=== PATIENT | female | born 1965 | race Caucasian/White ===

== ENCOUNTER 2020-06-06 07:18 | Outpatient (CLI) | payer OTHER ==
--- NOTE | 2020-06-06 11:55 | Ultrasound Report ---
PROCEDURE: Head or Neck Soft Tissue INDICATIONS: NONTOXIC GOITER TECHNIQUE: Real-time scanning was performed of the thyroid gland, with image documentation. COMPARISON: None FINDINGS: Right: Thyroid lobe measures 4.5 x 1.7 x 1.6 cm, and is homogeneous in echotexture. Left: Thyroid lobe measures 4.5 x 1.7 x 1.4 cm, and is homogenous in echotexture. Isthmus: 3 mm thick. Nodule number: 1 Location: Right superior thyroid Size: 0.6 x 0.3 x 0.4 cm. Composition: Cystic Echogenicity: Anechoic Shape: wider than tall. Margins: Smooth Echogenic foci: None Total points: 0 ACR TI-RADS category: 1 Nodule number: 2 Location: Left superior thyroid Size: 1.2 x 0.6 x 1.1 cm. Composition: Solid Echogenicity: Hypoechoic Shape: wider than tall. Margins: Smooth Echogenic foci: None Total points: 4 ACR TI-RADS category: 4 IMPRESSION: Bilateral thyroid nodules are seen. By published criteria, annual follow-up is recommended for the left thyroid nodule. ACR TI-RADS definitions and recommendations: TI-RADS 1 (benign): 0 points. FNA not needed. TI-RADS 2 (not suspicious): 2 points. FNA not needed. TI-RADS 3 (mildly suspicious): 3 points. ? FNA if 2.5 cm or larger, follow up if 1.5 cm or larger (at 1, 3, and 5 years). TI-RADS 4 (moderately suspicious): 4-6 points. ? FNA if 1.5 cm or larger, follow up if 1 cm or larger (at 1, 2, 3, and 5 years). TI-RADS 5 (highly suspicious): 7 points or more. ? FNA if 1 cm or larger, follow up if 0.5 cm or larger (every year for 5 years). Reviewed by: Gal Sosa MD on 06/06/2020 10:54 AM [facility] Approved by: Gal Sosa MD on 06/06/2020 10:54 AM [facility] Station ID: [id number]
== END 2020-06-06 07:19 | disposition home or self-care (01) ==
LOC: DI 07:18
PROVIDERS: ATTEND Physician Assistant
DX: E04.2 Nontoxic multinodular goiter (principal)

== ENCOUNTER 2020-07-01 15:04 | Outpatient (CLI) | payer OTHER ==
--- NOTE | 2020-07-09 08:26 | Mammography Report ---
BILATERAL DIGITAL SCREENING MAMMOGRAM 3D/2D WITH AUGMENTATION: 07/01/2020 CLINICAL: Routine screening. Routine screening. No prior exams were available for comparison. There are scattered fibroglandular elements in both br easts. Bilateral subpectoral silicone implants are intact. No significant masses, calcifications, or other findings are seen in either breast. IMPRESSION: BENIGN There is no mammographic evidence of malignancy. Return to annual mammogram screening schedule is rec ommended. This exam was interpreted at Station ID: [id number]. NOTE: For mammograms, a report in lay terms will be sent to the patient. Approximately 15% of breast malignancies will not be visualized mammographically. In the management of a palpable breast mass, a negative mammogram must not discourage biopsy of a clinically suspicious lesion. Electronically Signed By: Smiley aldana/aleisha:07/08/2020 16:33:33 ACR BI-RADS Category 2: Benign Finding(s) 3342F PARENCHYMAL PATTERN: (A) - The breast(s) demonstrate(s) scattered fibroglandular densities. BI-RADS CATEGORY: (2) - 2 RECOMMENDATION: (ANNUAL) - Recommend routine annual screening mammography. [id number] return to screening LATERALITY: (B)
== END 2020-07-01 15:05 | disposition home or self-care (01) ==
LOC: DI.S 15:04
PROVIDERS: ATTEND Physician Assistant
DX: Z12.31 Encounter for screening mammogram for malignant neoplasm of breast (principal); Z98.82 Breast implant status

== ENCOUNTER 2021-06-17 13:55 | Outpatient (CLI) | payer OTHER ==
--- NOTE | 2021-06-17 16:58 | Ultrasound Report ---
PROCEDURE: Head or Neck Soft Tissue INDICATIONS: MULTINODULAR GOITER TECHNIQUE: Real-time scanning was performed of the thyroid gland, with image documentation. COMPARISON: 06/06/2020 FINDINGS: Right: Thyroid lobe measures 4.3 x 1.5 x 1.8 cm, and is homogeneous in echotexture. Left: Thyroid lobe measures 4.7 x 1.5 x 1.7 cm, and is homogenous in echotexture. Isthmus: 2.4 mm thick. Nodule number: One Location: Right mid-lateral Size: 0.6 x 0.3 x 0.5 cm. Composition: Cyst Echogenicity: Anechoic Shape: wider than tall. Margins: Smooth Echogenic foci: , Tail artifact Total points: 0 ACR TI-RADS category: 1; benign Nodule number: Two Location: Left mid superior Size: 1.2 x 0.6 x 1.3 cm. Composition: Central Echogenicity: Hypoechoic Shape: wider than tall. Margins: Smooth Echogenic foci: Punctate Total points: 4 ACR TI-RADS category: 4; moderately suspicious IMPRESSION: Bilateral thyroid nodule stable compared to 06/06/2020. Recommend continued surveillance of nodule 2 in one year, 2 years and 4 years based on criteria outlined below. ACR TI-RADS definitions and recommendations: TI-RADS 1 (benign): 0 points. FNA not needed. TI-RADS 2 (not suspicious): 2 points. FNA not needed. TI-RADS 3 (mildly suspicious): 3 points. "FNA if 2.5 cm or larger, follow up if 1.5 cm or larger (at 1, 3, and 5 years). TI-RADS 4 (moderately suspicious): 4-6 points. "FNA if 1.5 cm or larger, follow up if 1 cm or larger (at 1, 2, 3, and 5 years). TI-RADS 5 (highly suspicious): 7 points or more. "FNA if 1 cm or larger, follow up if 0.5 cm or larger (every year for 5 years). Reviewed by: Denise Centeno MD, PhD on 06/17/2021 4:57 PM PST Approved by: Denise Centeno MD, PhD on 06/17/2021 4:57 PM PST Station ID: [id number]
== END 2021-06-17 13:56 | disposition home or self-care (01) ==
LOC: DI 13:55
PROVIDERS: ATTEND Physician Assistant
DX: E04.2 Nontoxic multinodular goiter (principal)

== ENCOUNTER 2021-10-06 13:06 | Outpatient (CLI) | payer OTHER ==
[2021-10-06 20:14] LABS: BASOPHILS % (AUTO) 0.4 %; EOSINOPHILS # (AUTO) 0.1 10^3/uL (0.0-0.7); EOSINOPHILS % (AUTO) 1.2 %; HCT - HEMATOCRIT 42.4 % (37.0-47.0); HGB - HEMOGLOBIN 13.9 g/dL (12.0-16.0); LYMPHOCYTES % (AUTO) 32.4 %; MEAN CORPUSCULAR HEMOGLOBIN 31.7 pg (27.0-31.0); MEAN CORPUSCULAR HGB CONC 32.8 g/dL (32.0-36.0); MEAN CORPUSCULAR VOLUME 96.6 fL (81.0-99.0); MEAN PLATELET VOLUME 9.9 fL (7.9-10.8); MONOCYTES # (AUTO) 0.6 10^3/uL (0.0-1.0); MONOCYTES % (AUTO) 6.7 %; NEUTROPHILS # (AUTO) 5.4 10^3/uL (1.5-6.6); NEUTROPHILS % (AUTO) 59.1 %; PLT - PLATELET COUNT 321 10^3/uL (130-450); RED BLOOD COUNT 4.39 10^6/uL (4.20-5.40); RED CELL DISTRIBUTION WIDTH 12.8 % (12.0-15.0); WHITE BLOOD COUNT 9.1 x10^3/uL (4.8-10.8)
[2021-10-06 20:28] LABS: % IRON SATURATION 22 % (20-50); ALBUMIN 3.9 g/dL (3.2-5.5); ALBUMIN/GLOBULIN RATIO 1.2 (1.0-2.2); ALKALINE PHOSPHATASE 68 IU/L (42-121); ALT ALANINE AMINOTRANSFERASE 22 IU/L (10-60); AST ASPARTATE AMINOTRANSFERASE 21 IU/L (10-42); BILIRUBIN,TOTAL < 0.2 mg/dL (0.2-1.0); BUN - BLOOD UREA NITROGEN 13 mg/dL (6-20); CALCIUM 9.5 mg/dL (8.5-10.3); CARBON DIOXIDE - CO2 29 mmol/L (21-32); CHLORIDE 103 mmol/L (101-111); CHOLESTEROL 270 mg/dL; CREATININE 0.7 mg/dL (0.4-1.0); GFR - MDRD 86 (>89); GLUCOSE 123 mg/dL (70-100); HDL CHOLESTEROL 67 mg/dL; IRON 74 ug/dL (28-170); LDL CHOLESTEROL,CALCULATED 159 mg/dL; LDL/HDL RATIO 2.4 (<4.4); POTASSIUM 4.2 mmol/L (3.5-5.0); SODIUM 141 mmol/L (135-145); TOTAL IRON BINDING CAPACITY 342 ug/dL (250-450); TOTAL PROTEIN 7.1 g/dL (6.7-8.2); TRANSFERRIN 244 mg/dL (192-382); TRIGLYCERIDES 220 mg/dL; VLDL CHOLESTEROL 44 mg/dL
[2021-10-06 20:36] LABS: THYROID STIMULATING HORMONE 1.4 uIU/mL (0.34-5.60)
[2021-10-06 20:38] LABS: FREE T3 3.28 pg/mL (2.5-3.9)
[2021-10-06 20:40] LABS: FREE T4 (FREE THYROXINE) 0.71 ng/dL (0.58-1.64)
[2021-10-06 20:44] LABS: FERRITIN 53.7 ng/mL (11.0-306.8)
[2021-10-06 20:50] LABS: CRP - C-REACTIVE PROTEIN < 1.0 mg/dL (0-1.0)
== END 2021-10-06 13:07 | disposition home or self-care (01) ==
LOC: LAB.S 13:06
PROVIDERS: ATTEND Nurse Practitioner Family
DX: E78.5 Hyperlipidemia, unspecified (principal); R53.83 Other fatigue; L65.9 Nonscarring hair loss, unspecified; E04.1 Nontoxic single thyroid nodule
CPT/HCPCS: 36415; 80053; 80061; 82728; 83540; 83721; 84439; 84443; 84466; 84481; 85025; 85651; 86140

== ENCOUNTER 2021-10-19 12:57 | Outpatient (CLI) | payer OTHER ==
--- NOTE | 2021-10-19 16:25 | DEXA Report ---
PROCEDURE: Dexa Spine and/or Hip INDICATIONS: POST MENOPAUSAL TECHNIQUE: Dual energy x-ray absorptiometry (DXA) was performed on a Segm[employer] System. Regions measur ed are the AP Spine, femoral neck, and if needed forearm. COMPARISON: None. FINDINGS: Lumbar Spine: Bone Mineral Density 1.077 g/cm/cm,T score -0.7, normal. Left Hip: Bone Mineral Density 0.871 g/cm/cm,T score -1.1, osteopenia. Left Femoral Neck: Bone Mineral Density 0.867 g/cm/cm, T score -1.2, osteopenia. (T score greater or equal to -1.0: NORMAL) (T score from -1.1 to -2.4: OSTEOPENIA) (T score less than or equal to -2.5 to: OSTEOPOROSIS) Impression: Decreased bone mineral density in the osteopenia range at the left hip and left femoral neck. Patients with diagnosis of osteoporosis or osteopenia should have regular bone mineral density assess ment. For those eligible for Medicare, routine testing is allowed once every 2 years. Testing frequ ency can be increased for patients who have rapidly progressing disease or for those who are receivin g medical therapy to restore bone mass. Reviewed by: Sherwin Jha MD on 10/19/2021 4:24 PM PDT Approved by: Sherwin Jha MD on 10/19/2021 4:24 PM PDT Station ID: [id number]
== END 2021-10-19 12:58 | disposition home or self-care (01) ==
LOC: DI 12:57
PROVIDERS: ATTEND Nurse Practitioner Family
DX: M85.89 Other specified disorders of bone density and structure, multiple sites (principal); Z78.0 Asymptomatic menopausal state

== ENCOUNTER 2021-10-26 09:42 | Outpatient (CLI) | payer OTHER ==
--- NOTE | 2021-10-27 16:21 | Mammography Report ---
BILATERAL DIGITAL SCREENING MAMMOGRAM 3D/2D WITH AUGMENTATION: 10/26/2021 CLINICAL: Routine screening. Comparison is made to exam dated: 07/01/2020 mammogram - [facility]. There are sca ttered fibroglandular elements in both breasts. Bilateral breast implants are stable and intact. No significant masses, calcifications, or other findings are seen in either breast. There has been no significant interval change. IMPRESSION: NEGATIVE There is no mammographic evidence of malignancy. A 1 year screening mammogram is recommended. Based on the Tyrer Cuzick model (a risk assessment model) the patients lifetime risk is 8.3% and her 10 year risk is 3.1%. According to the ACR, ACS, and NCCN guidelines, an annual breast MRI exam chivo g with mammogram is recommended if the patients lifetime risk is 20% or greater. This exam was interpreted at Station ID: [id number]. NOTE: For mammograms, a report in lay terms will be sent to the patient. Approximately 15% of breast malignancies will not be visualized mammographically. In the management of a palpable breast mass, a negative mammogram must not discourage biopsy of a clinically suspicious lesion. Electronically Signed By: Smiley aldana/aleisha:10/26/2021 16:14:25 ACR BI-RADS Category 1: Negative 3341F PARENCHYMAL PATTERN: (A) - The breast(s) demonstrate(s) scattered fibroglandular densities. BI-RADS CATEGORY: (1) - 1 RECOMMENDATION: (ANNUAL) - Recommend routine annual screening mammography. [id number] 1 year screening LATERALITY: (B)
== END 2021-10-26 09:43 | disposition home or self-care (01) ==
LOC: DI.S 09:42
PROVIDERS: ATTEND Nurse Practitioner Family
DX: Z12.31 Encounter for screening mammogram for malignant neoplasm of breast (principal); Z98.82 Breast implant status

== ENCOUNTER 2021-11-04 21:27 | Emergency (ER) | payer OTHER ==
[2021-11-04] MEDS ORDERED: KETOROLAC 30 MG/ML VIAL IM STA (21:45)
[2021-11-04] MEDS ORDERED: ACETAMINOPHEN 325 MG TABLET PO STA (21:46)
[2021-11-04] MEDS ORDERED: oxyCODONE 5 MG TABLET PO STA (21:46)
--- OUTSIDE RECORDS SUMMARY | 2021-11-04 21:56 | EXTERNAL MEDICAL SUMMARY RPT | Continuity of Care Document ---
:1965 Author Organization [facility] Address [address] [place] [address] Phone Allergies No information. Encounters No information. Functional Status No information. Immunizations No information. Medications No information. Problems No information. Procedures date description facility +0000 Visit Code Hold [facility] [place] Results/Labs No information. Social History date description facility +0000 Never smoker [facility] [place] Vital Signs date measurement value units [id number]+0000 BMI BMI 24.36 kg/m2 [id number]+0000 BP_diastolic BP_diastolic 76 mm[H g] 55488438774104+0000 BP_systolic BP_systolic 114 mm[Hg] [id number]+0000 heart_rate heart_rate 70 /min [id number]+0000 height_metric height_metric 160.02 cm [id number]+0000 height_standard height_standard 63 in [id number]+0000 respiration_rate respiration_rate 16 /min 40504062378641+0000 temperature_metric temperature_metric 37.06 C [id number]+0000 temperature_standard temperature_standard 9 8.7 F [id number]+0000 weight_metric weight_metric 62.14 kg [id number]+0000 weight_standard weight_standard 137 lb
[2021-11-04] MEDS ORDERED: oxyCODONE/ACET 5/325 Prepack 4 PO STA (22:22)
--- NOTE | 2021-11-04 22:33 | XRAY Report ---
PROCEDURE: Knee 4 View RT INDICATIONS: Extremity injury TECHNIQUE: 3 views of the right knee(s) were acquired. COMPARISON: None. FINDINGS: Bones: No fractures or dislocations. No suspicious bony lesions. Soft tissues: No joint effusion. No suspicious soft tissue calcifications. IMPRESSION: No acute finding. Reviewed by: Andrew Hutchins MD on 11/04/2021 10:31 PM PDT Approved by: Andrew Hutchins MD on 11/04/2021 10:31 PM PDT Station ID: [id number]
--- NOTE | 2021-11-04 22:41 | ED Physician Documentation ---
PD HPI LOWER EXT INJURY - Stated complaint Stated Complaint: R KNEE INJ - Chief complaint Chief Complaint: Trauma Ext - History obtained from History obtained from: Patient - History of Present Illness PD HPI LOW EXT INJURY LOCATION: Right, Knee - Additional information Additional information: 56-year-old female presents for right knee pain that began just prior to arrival. Patient states that she was on a boat and jumped off onto the dock when she felt a popping noise. She states that there was pain immediately afterwards. Someone nearby told him that they worked in orthopedics and immediately began icing the knee. Reports severe pain with weightbearing. Denies numbness, weakness, tingling of her lower extremity. Review of Systems Ten Systems: 10 systems reviewed and negative Constitutional: denies: Fever, Chills Musculoskeletal: reports: Joint pain, Joint swelling, Pain with weight bearing Neurologic: denies: Generalized weakness, Focal weakness, Numbness PD PAST MEDICAL HISTORY - Past Medical History Past Medical History: No - Present Medications Home Medications: Ambulatory Orders Medication Instructions Recorded Confirmed Naproxen 500 mg PO BID PRN #20 tablet 11/04/21 - Allergies Allergies/Adverse Reactions: Allergies Allergy/AdvReac Type Severity Reaction Status Date / Time No Known Drug Allergies Allergy Verified 11/04/21 21:34 PD ED PE NORMAL - Vitals Vital signs reviewed: Yes - General General: Alert and oriented X 3, No acute distress, Well developed/nourished - HEENT HEENT: Atraumatic, PERRL, EOMI, Ears normal, Moist mucous membranes - Neck Neck: Supple, no meningeal sign, No bony TTP, C-Spine cleared by NEXUS criteria - Cardiac Cardiac: RRR, No murmur, Strong equal pulses - Respiratory Respiratory: No respiratory distress, Clear bilaterally - Abdomen Abdomen: Soft, Non tender, Non distended - Back Back: No CVA TTP, No spinal TTP - Derm Derm: Normal color, Warm and dry, No rash - Extremities Extremities: No deformity, No edema, Other (Medial knee TTP on R side. Full ROM) - Neuro Neuro: Alert and oriented X 3, rock picker 2-12 intact, No motor deficit, No sensory deficit, Normal speech - Psych Psych: Normal mood, Normal affect Results - Vitals Vitals: Vital Signs - 24 hr 11/04/21 11/04/21 21:30 23:03 Temperature 36.9 C Heart Rate 74 80 Respiratory 14 16 Rate Blood Pressure 104/61 110/76 O2 Saturation 95 98 Oxygen O2 Source Room air PD MEDICAL DECISION MAKING - ED course Complexity details: reviewed results ED course: Knee pain and swelling after jumping from boat to dock. No bony abnormality seen on x-ray imaging. Patient does appear to have some laxity of medial collateral ligament. Question ligamentous injury such as MCL or ACL. Patient was placed in the immobilizer and given crutches for weight support. Patient counseled to take Tylenol and anti-inflammatories as needed for pain and swelling. Percocet prepack given for breakthrough pain. Counseled to use of ice and elevation when at rest. Patient counseled to call the [place] [facility] first thing tomorrow morning to make a follow-up appointment. Departure - Departure Disposition: 01 Home, Self Care Clinical Impression: Knee injury Qualifiers: Encounter type: initial encounter Laterality: right Qualified Code(s): S89.91XA - Unspecified injury of right lower leg, initial encounter Condition: Stable Instructions: Crutches Weight Bearing, ED Immobilizer Knee, ED Sprain Knee, ED RICE, ED Sprain Knee Collateral Ligaments Prescriptions: Naproxen 500 mg PO BID PRN #20 tablet PRN Reason: Pain Discharge Date/Time: 11/04/21 22:55
[2021-11-04 23:04] VITALS: BP 110/76
== END 2021-11-04 22:55 | disposition home or self-care (01) ==
LOC: ED 21:27
DX: S89.91XA Unspecified injury of right lower leg, initial encounter (principal); X58.XXXA Exposure to other specified factors, initial encounter; Y93.39 Activity, other involving climbing, rappelling and jumping off
CPT/HCPCS: 73564; 96372; 99282; 99283; A9270

== ENCOUNTER 2022-09-28 11:26 | Outpatient (CLI) | payer OTHER ==
[2022-09-28 15:03] LABS: THYROID STIMULATING HORMONE 1.25 uIU/mL (0.34-5.60)
[2022-09-28 15:31] LABS: FOLLICLE STIMULATING HORMONE 49.18 mIU/mL
[2022-09-29 06:39] LABS: ESTRADIOL 6.5 pg/mL (.); PROGESTERONE 2.1 ng/mL (.)
== END 2022-09-28 11:27 | disposition home or self-care (01) ==
LOC: LAB.S 11:26
PROVIDERS: ATTEND Naturopath
DX: R53.83 Other fatigue (principal); N95.1 Menopausal and female climacteric states; Z79.890 Hormone replacement therapy
CPT/HCPCS: 36415; 82670; 83001; 84144; 84403; 84443

== ENCOUNTER 2023-10-09 10:36 | Outpatient (CLI) | payer OTHER ==
--- NOTE | 2023-10-09 23:32 | DEXA Report ---
PROCEDURE: Dexa Spine and/or Hip INDICATIONS: OSTEOPENIA TECHNIQUE: Dual energy x-ray absorptiometry (DEXA) was performed in the regions detailed below. COMPARISON: 10/19/2021 FINDINGS: Lumbar Spine: Bone Mineral Density 1.152 g/cm/cm,T score -0.2. Previously -0.9 Left Femoral Neck: Bone Mineral Density 0.861 g/cm/cm, T score -1.3. Previously -1.2 Left Total Hip: Bone Mineral Density 0.865 g/cm/cm,T score -1.1. Previously -1.1 (T score greater or equal to -1.0: NORMAL) (T score from -1.1 to -2.4: OSTEOPENIA) (T score less than or equal to -2.5 to: OSTEOPOROSIS) IMPRESSION: Osteopenia Patients with diagnosis of osteoporosis or osteopenia should have regular bone mineral density assess ment. For those eligible for Medicare, routine testing is allowed once every 2 years. Testing frequ ency can be increased for patients who have rapidly progressing disease or for those who are receivin g medical therapy to restore bone mass. Reviewed by: Brannon Sanchez MD on 10/09/2023 10:30 PM [facility] Approved by: Brannon Sanchez MD on 10/09/2023 10:30 PM [facility] Station ID: [id number]
== END 2023-10-09 10:37 | disposition home or self-care (01) ==
LOC: DI 10:36
PROVIDERS: ATTEND Family Medicine
DX: M85.89 Other specified disorders of bone density and structure, multiple sites (principal); Z78.0 Asymptomatic menopausal state; Z79.890 Hormone replacement therapy

== ENCOUNTER 2023-10-23 11:06 | Outpatient (CLI) | payer OTHER ==
[2023-10-23 14:50] LABS: ALBUMIN 4.6 g/dL (3.2-5.5); ALBUMIN/GLOBULIN RATIO 1.4 (1.0-2.2); BILIRUBIN,TOTAL 0.5 mg/dL (0.2-1.0); CREATININE 0.8 mg/dL (0.6-1.3); POTASSIUM 3.9 mmol/L (3.5-4.5)
== END 2023-10-23 11:07 | disposition home or self-care (01) ==
LOC: LAB.S 11:06
PROVIDERS: ATTEND Obstetrics & Gynecology
DX: Z51.81 Encounter for therapeutic drug level monitoring (principal); Z79.890 Hormone replacement therapy
CPT/HCPCS: 36415; 80053